=== PATIENT | female | born 1995 | race Caucasian/White ===

== ENCOUNTER 2021-08-16 12:38 | Outpatient (CLI) | payer BC | END 2021-08-16 23:59 | disposition home or self-care (01) | LOC: LAB 12:38 | PROVIDERS: ATTEND Nurse Practitioner | DX: R09.81 Nasal congestion (principal); Z20.822 Contact with and (suspected) exposure to COVID-19 ==

== ENCOUNTER 2022-07-15 08:00 | Outpatient (CLI) | payer BC ==
[2022-07-15 23:49] LABS: CHLAMYDIA TRACHOMATIS DNA NEGATIVE (NEGATIVE); NEISSERIA GONORRHOEAE DNA NEGATIVE (NEGATIVE); TRICHOMONAS VAGINALIS DNA NEGATIVE (NEGATIVE)
== END 2022-07-15 23:59 | disposition home or self-care (01) ==
LOC: LAB 08:00
PROVIDERS: ATTEND Nurse Practitioner
DX: Z11.3 Encounter for screening for infections with a predominantly sexual mode of transmission (principal)
CPT/HCPCS: 87491; 87591; 87661